=== PATIENT | male | born 1965 | race Caucasian/White ===

== ENCOUNTER 2021-07-29 02:54 | Emergency (ER) | payer MEDICARE, OTHER ==
[2021-07-29 06:07] VITALS: BP 149/99
[2021-07-29] MEDS ORDERED: cefTRIAXone SOD 1,000 MG VL IM ONE (06:30)
[2021-07-29] MEDS ORDERED: SULF400T11 PO (06:32)
[2021-07-29] MEDS ORDERED: CEPH500C PO (06:32)
[2021-07-29] MEDS ORDERED: LIDOCAINE 1% HCL (LOCAL ANESTH.) INJ 20ML MDV IJ ONE (06:45)
== END 2021-07-29 06:50 | disposition home or self-care (01) ==
LOC: ER 02:54
DX: S60.562A Insect bite (nonvenomous) of left hand, initial encounter (principal); S60.561A Insect bite (nonvenomous) of right hand, initial encounter; W57.XXXA Bitten or stung by nonvenomous insect and other nonvenomous arthropods, initial encounter; Y93.89 Activity, other specified; Y92.89 Other specified places as the place of occurrence of the external cause; Y99.8 Other external cause status
CPT/HCPCS: 96372; 99283; J0696; J2001